=== PATIENT | male | born 1985 | race Two or more races ===

== ENCOUNTER 2025-04-05 17:45 | Emergency (ER) | payer OTHER ==
[~2025-04-05] VITALS: Ht 182.9 cm; Wt 84.0 kg
[2025-04-05 21:00] VITALS: BP 121/74; PULSE 79; RESP 16; TEMP 97.3; O2SAT 98
== END 2025-04-05 22:12 ==
LOC: EMS 17:45
DX: S00.93XA Contusion of unspecified part of head, initial encounter (principal); H53.2 Diplopia; Y04.8XXA Assault by other bodily force, initial encounter; Y93.89 Activity, other specified; Y92.89 Other specified places as the place of occurrence of the external cause; Y99.8 Other external cause status
CPT/HCPCS: 70450; 99284